=== PATIENT | male | born 1990 | race Hispanic/Latino ===

== ENCOUNTER 2018-12-20 21:10 | Emergency (ER) | payer OTHER ==
[2018-12-20] MEDS ORDERED: DEXAMETHASONE SOD PHOSPHATE 10MG/ML 1ML VIAL ONE (22:02)
[2018-12-20] MEDS ORDERED: KETOROLAC TROMETHAMINE 60 MG/2 ML VIAL ONE (22:03)
[2018-12-20] MEDS ORDERED: DiphenhydrAMINE HCL 50 MG/ML VIAL ONE (22:03)
== END 2018-12-20 23:11 | disposition home or self-care (01) ==
LOC: EDH 21:10
DX: R51 Headache (principal)
CPT/HCPCS: 96372 ×3; 99283; J1100; J1200; J1885